=== PATIENT | female | born 1980 | race Caucasian/White ===

== ENCOUNTER 2020-11-12 00:52 | Emergency (ER) | payer SELFPAY ==
[~2020-11-12] VITALS: Ht 170.2 cm; Wt 109.0 kg
[2020-11-12] MEDS ORDERED: LYRICA25 MG PO (01:15)
[2020-11-12] MEDS ORDERED: WELLBUTRIN150 M1 PO (01:16)
[2020-11-12] MEDS ORDERED: TRAZODONE50 MG PO (01:16)
[2020-11-12] MEDS ORDERED: BUSPAR5 MG PO (01:17)
[2020-11-12] MEDS ORDERED: NAPROXEN500 MG PO (01:28)
[2020-11-12 01:33] VITALS: BP 110/65
== END 2020-11-12 01:39 | disposition home or self-care (01) | DRG 563 ==
LOC: ED 00:52
DX: S96.912A Strain of unspecified muscle and tendon at ankle and foot level, left foot, initial encounter (principal); J45.909 Unspecified asthma, uncomplicated; X50.9XXA Other and unspecified overexertion or strenuous movements or postures, initial encounter; Y93.9 Activity, unspecified; Y92.009 Unspecified place in unspecified non-institutional (private) residence as the place of occurrence of the external cause

== ENCOUNTER 2021-07-17 21:43 | Emergency (ER) | payer OTHER ==
[~2021-07-17] VITALS: Ht 170.2 cm; Wt 109.0 kg
[~2021-07-17 21:43] MED LIST: BUSPAR5 MG PO; LYRICA25 MG PO; NAPROXEN500 MG PO; TRAZODONE50 MG PO; WELLBUTRIN150 M1 PO
[2021-07-17 21:50] VITALS: BP 123/81
[2021-07-17 22:00] VITALS: BP 114/73
[2021-07-17 22:18] LABS: HEMOGLOBIN 13.9 g/dl (12.0-16.0); IMMATURE GRANULOCYTES 0.2 % (0.0-5.0); MEAN CORPUSCULAR HGB 31.9 pG CALC (26.0-32.0); MEAN CORPUSCULAR HGB CONC 33.9 g/dL CAL (32.0-36.0); NEUT# 3.27 thou/uL (2.00-7.15); RED BLOOD COUNT 4.36 mill/uL (4.20-5.60); RED CELL DISTRI WIDTH 13.4 % (11.5-15.5)
[2021-07-17] MEDS ORDERED: PROAIR HFA IN (22:22)
[2021-07-17] MEDS ORDERED: ZYRTEC10 MG PO (22:23)
[2021-07-17 22:41] LABS: ALBUMIN 4.1 g/dL (3.2-5.0); ALKALINE PHOSPHATASE 122 u/l (38-126); ANION GAP 11 (6-22 (CALC)); BILIRUBIN, TOTAL 0.5 mg/dL (0.0-1.4); BUN 11 mg/dL (7-17); BUN/CREATININE RATIO 17 (12-20 (CALC)); CARBON DIOXIDE 22 mmol/l (22-30); CHLORIDE 106 mmol/l (95-108); CREATININE 0.6 mg/dL (0.5-1.0); GFR > 60 ML/MIN (>=60 (CALC)); GFR FOR AFR.AMER. > 60 ML/MIN (>=60 (CALC)); POTASSIUM 3.8 mmol/l (3.5-5.1); SGOT/AST 54 u/l (14-36); SODIUM 135 mmol/l (137-146)
[2021-07-17] MEDS ORDERED: MEDDOSEPAK PO (22:48)
[2021-07-17 22:51] VITALS: BP 114/73
== END 2021-07-17 23:05 | disposition home or self-care (01) | DRG 203 ==
LOC: ED 21:43
PROVIDERS: Emergency Medicine
DX: J45.901 Unspecified asthma with (acute) exacerbation (principal); F17.200 Nicotine dependence, unspecified, uncomplicated